=== PATIENT | female | born 1975 | race Caucasian/White ===

== ENCOUNTER 2016-07-28 11:53 | Emergency (ER) | payer OTHER ==
--- NOTE | 2016-07-28 12:37 | ER Document Report ---
ED Medical Screen (RME) - General Chief Complaint: Lower Abdominal Pain Stated Complaint: RIGHT SIDE AND LEG PAIN Time Seen by Provider: 07/28/16 12:34 Notes: Patient has been having pain in her right lower quadrant for about the past week. She has been nauseated but not vomiting. No diarrhea. Having regular bowel movements. Denies any UTI symptoms. No fevers. Seen at a local urgent care and referred here for further evaluation patient had a total hysterectomy including her ovaries being removed in February for 2 very large fibroids. Still has her appendix. TRAVEL OUTSIDE OF THE [place] IN LAST 30 DAYS: No - Related Data Allergies/Adverse Reactions: No Known Drug Allergies Allergy (Verified 07/28/16 11:56) purex soap Adverse Reaction (Intermediate, Uncoded 07/28/16 11:56) skin irritation,bumps Home Medications: Current Home Medications Estradiol [Divigel] 1 packet PO DAILY 07/28/16 [History] Past Medical History - Past Medical History Cardiac Medical History: Reports: Hx Hypertension Denies: Hx Atrial Fibrillation, Hx Congestive Heart Failure, Hx Coronary Artery Disease, Hx Heart Attack, Hx Hypercholesterolemia, Hx Peripheral Vascular Disease, Hx Pulmonary Embolism, Hx Heart Murmur Pulmonary Medical History: Reports: Hx Pneumonia Denies: Hx Asthma, Hx Bronchitis, Hx COPD, Hx Respiratory Failure, Hx Sleep Apnea, Hx Tuberculosis Neurological Medical History: Renal/ Medical History: Denies: Hx End Stage Renal Disease, Hx Kidney Stones, Hx Ovarian Cysts, Hx Peritoneal Dialysis, Hx Pelvic Inflammatory Disease Malignancy Medical History: Denies: Hx Breast Cancer, Hx Cervical Cancer, Hx Leukemia, Hx Lung Cancer, Hx Ovarian Cancer GI Medical History: Denies: Hx Crohn's Disease, Hx Gastroesophageal Reflux Disease, Hx Hiatal Hernia, Hx Irritable Bowel, Hx Liver Failure, Hx Ulcer Musculoskeltal Medical History: Reports Hx Arthritis - bursitis shoulders,knees , Denies Hx Fibromyalgia, Denies Hx Muscular Dystrophy Psychiatric Medical History: Reports: Hx Anxiety Denies: Hx Bipolar Disorder, Hx Depression, Hx Post Traumatic Stress Disorder , Hx Schizophrenia Traumatic Medical History: Denies: Hx Fractures Infectious Medical History: Denies: Hx HIV Past Surgical History: Reports: Hx Cholecystectomy. Denies: Hx Appendectomy, Hx Bowel Surgery, Hx Section, Hx Colostomy, Hx Coronary Artery Bypass Graft, Hx Gastric Bypass Surgery, Hx Herniorrhaphy, Hx Hysterectomy, Hx Mastectomy, Hx Pacemaker, Hx Tonsillectomy, Hx Tubal Ligation - Immunizations Hx Diphtheria, Pertussis, Tetanus Vaccination: No Physical Exam - Vital signs Vitals: Temp Pulse Resp BP Pulse Ox 98.4 F 77 14 151/105 H 100 07/28/16 11:56 07/28/16 11:56 07/28/16 11:56 07/28/16 11:56 07/28/16 11:56 Course - Vital Signs Vital signs: Temp Pulse Resp BP Pulse Ox 98.4 F 77 14 151/105 H 100 07/28/16 11:56 07/28/16 11:56 07/28/16 11:56 07/28/16 11:56 07/28/16 11:56
[2016-07-28 13:28] LABS: ABSOLUTE BASOPHILS # (AUTO) 0.1 10^3/uL (0.0-0.2); ABSOLUTE EOSINOPHILS # (AUTO) 0.2 10^3/uL (0.0-0.6); ABSOLUTE LYMPHOCYTES (AUTO) 1.9 10^3/uL (0.5-4.7); ABSOLUTE MONOCYTES (AUTO) 0.5 10^3/uL (0.1-1.4); ABSOLUTE NEUT (AUTO) 7.4 10^3/uL (1.7-8.2); BASOPHILS % (AUTO) 0.6 % (0-2); EOSINOPHILS % (AUTO) 1.9 % (0-6); HEMATOCRIT 43.2 % (36.0-47.0); HEMOGLOBIN 14.9 g/dL (12.0-15.5); HGB HCT DIFFERENCE 1.5; LYMPHOCYTES % (AUTO) 18.8 % (13-45); MEAN CORPUSCULAR HEMOGLOBIN 27.1 pg (27.0-33.4); MEAN CORPUSCULAR HGB CONC 34.5 g/dL (32.0-36.0); MEAN CORPUSCULAR VOLUME 79 fl (80-97); MONOCYTES % (AUTO) 4.8 % (3-13); RED BLOOD COUNT 5.49 10^6/uL (3.72-5.28); SEGMENTED NEUTROPHILS % (AUTO) 73.9 % (42-78)
[2016-07-28 13:31] LABS: APPEARANCE,URINE CLEAR; BILIRUBIN,URINE NEGATIVE (NEGATIVE); GLUCOSE, URINE NEGATIVE (NEGATIVE); KETONES,URINE NEGATIVE (NEGATIVE); LEUKOCYTE ESTERASE,URINE NEGATIVE (NEGATIVE); NITRITE,URINE NEGATIVE (NEGATIVE); PROTEIN,URINE NEGATIVE (NEGATIVE); URINE SPECIFIC GRAVITY 1.008; UROBILINOGEN,URINE NEGATIVE mg/dL (<2.0)
[2016-07-28 13:46] LABS: ALANINE AMINOTRANSFERASE 33 U/L (9-52); ALKALINE PHOSPHATASE 113 U/L (38-126); ANION GAP 12 (5-19); ASPARTATE AMINO TRANSFERASE 25 U/L (14-36); BILIRUBIN,DIRECT 0.4 mg/dL (0.0-0.4); BILIRUBIN,TOTAL 0.7 mg/dL (0.2-1.3); BLOOD UREA NITROGEN 12 mg/dL (7-20); CALCIUM 10.2 mg/dL (8.4-10.2); CARBON DIOXIDE 26 mmol/L (22-30); CHLORIDE 103 mmol/L (98-107); CREATININE RESULT 0.74 mg/dL (0.52-1.25); GLUCOSE 90 mg/dL (75-110); POTASSIUM 4.6 mmol/L (3.6-5.0); SODIUM 141.2 mmol/L (137-145); TOTAL PROTEIN 8.7 g/dL (6.3-8.2)
[2016-07-28] MEDS ORDERED: MORPHINE SULFATE 10 MG/ML INJ IV ONE (14:26)
--- NOTE | 2016-07-28 14:33 | ER Document Report ---
ED General - General Chief Complaint: Lower Abdominal Pain Stated Complaint: RIGHT SIDE AND LEG PAIN Time Seen by Provider: 07/28/16 12:34 Mode of Arrival: Ambulatory Information source: Patient Notes: 41-year-old female history of total hysterectomy presents with complaints of right lower quadrant abdominal pain of one-week duration. Patient denies any fevers or chills admits to mild nausea decreased appetite. Patient denies any diarrhea Also notes when she has abdominal pain she has pain down her right leg into her back. Patient notes symptoms worsened with movement TRAVEL OUTSIDE OF THE [place] IN LAST 30 DAYS: No - HPI Onset: Last week Onset/Duration: Persistent Quality of pain: Achy Severity: Mild Pain Level: 2 Associated symptoms: Nausea, Vomiting Exacerbated by: Denies Relieved by: Denies Similar symptoms previously: No Recently seen / treated by doctor: No - Related Data Allergies/Adverse Reactions: No Known Drug Allergies Allergy (Verified 07/28/16 11:56) purex soap Adverse Reaction (Intermediate, Uncoded 07/28/16 11:56) skin irritation,bumps Home Medications: Current Home Medications Estradiol [Divigel] 1 packet PO DAILY 07/28/16 [History] Past Medical History - Social History Smoking Status: Never Smoker Cigarette use (# per day): No Chew tobacco use (# tins/day): No Smoking Education Provided: No Frequency of alcohol use: None Drug Abuse: None Family History: Reviewed & Not Pertinent Patient has suicidal ideation: No Patient has homicidal ideation: No - Past Medical History Cardiac Medical History: Reports: Hx Hypertension Denies: Hx Atrial Fibrillation, Hx Congestive Heart Failure, Hx Coronary Artery Disease, Hx Heart Attack, Hx Hypercholesterolemia, Hx Peripheral Vascular Disease, Hx Pulmonary Embolism, Hx Heart Murmur Pulmonary Medical History: Reports: Hx Pneumonia Denies: Hx Asthma, Hx Bronchitis, Hx COPD, Hx Respiratory Failure, Hx Sleep Apnea, Hx Tuberculosis Neurological Medical History: Renal/ Medical History: Denies: Hx End Stage Renal Disease, Hx Kidney Stones, Hx Ovarian Cysts, Hx Peritoneal Dialysis, Hx Pelvic Inflammatory Disease Malignancy Medical History: Denies: Hx Breast Cancer, Hx Cervical Cancer, Hx Leukemia, Hx Lung Cancer, Hx Ovarian Cancer GI Medical History: Denies: Hx Crohn's Disease, Hx Gastroesophageal Reflux Disease, Hx Hiatal Hernia, Hx Irritable Bowel, Hx Liver Failure, Hx Ulcer Musculoskeltal Medical History: Reports Hx Arthritis - bursitis shoulders,knees , Denies Hx Fibromyalgia, Denies Hx Muscular Dystrophy Psychiatric Medical History: Reports: Hx Anxiety Denies: Hx Bipolar Disorder, Hx Depression, Hx Post Traumatic Stress Disorder , Hx Schizophrenia Traumatic Medical History: Denies: Hx Fractures Infectious Medical History: Denies: Hx HIV Past Surgical History: Reports: Hx Cholecystectomy. Denies: Hx Appendectomy, Hx Bowel Surgery, Hx Section, Hx Colostomy, Hx Coronary Artery Bypass Graft, Hx Gastric Bypass Surgery, Hx Herniorrhaphy, Hx Hysterectomy, Hx Mastectomy, Hx Pacemaker, Hx Tonsillectomy, Hx Tubal Ligation - Immunizations Hx Diphtheria, Pertussis, Tetanus Vaccination: No Review of Systems - Review of Systems Notes: PHYSICAL EXAMINATION: GENERAL: Well-appearing, well-nourished and in no acute distress. HEAD: Atraumatic, normocephalic. EYES: Pupils equal round and reactive to light, extraocular movements intact, conjunctiva are normal. ENT: Nares patent, oropharynx clear without exudates. Moist mucous membranes. NECK: Normal range of motion, supple without lymphadenopathy LUNGS: Breath sounds clear to auscultation bilaterally and equal. No wheezes rales or rhonchi. HEART: Regular rate and rhythm without murmurs ABDOMEN: Soft, tender in the right lower quadrant with mild guarding Female : deferred Musculoskeletal: Normal range of motion, no pitting or edema. No cyanosis. NEUROLOGICAL: Cranial nerves grossly intact. Normal speech, normal gait. Normal sensory, motor exams PSYCH: Normal mood, normal affect. SKIN: Warm, Dry, normal turgor, no rashes or lesions noted. Physical Exam - Vital signs Vitals: Temp Pulse Resp BP Pulse Ox 98.4 F 77 14 151/105 H 100 07/28/16 11:56 07/28/16 11:56 07/28/16 11:56 07/28/16 11:56 07/28/16 11:56 Course - Re-evaluation Re-evalutation: 07/28/16 14:36 CT abdomen with oral and IV contrast has been ordered, to evaluate for appendicitis versus colitis other intra-abdominal issues 07/28/16 15:37 CT noted no significant abnormality, I believe this may be more of a muscular skeletal issue given that she has pain down the leg. Patient will be given pain medication and anti-inflammatories for this leg pain After performing a Medical Screening Examination, I estimate there is LOW risk for ACUTE APPENDICITIS, BOWEL OBSTRUCTION, ACUTE CHOLECYSTITIS, PERFORATED DIVERTICULITIS, INCARCERATED HERNIA, PANCREATITIS, PELVIC INFLAMMATORY DISEASE, PERFORATED ULCER, ECTOPIC , or TUBO-OVARIAN ABSCESS, thus I consider the discharge disposition reasonable. Also, there is no evidence or peritonitis , sepsis, or toxicity. I have reevaluated this patient multiple times and no significant life threatening changes are noted. The patient and I have discussed the diagnosis and risks, and we agree with discharging home with close follow-up with the understanding that symptoms and presentations can change. We also discussed returning to the Emergency Department immediately if new or worsening symptoms occur. We have discussed the symptoms which are most concerning (e.g., bloody stool, fever, changing or worsening pain, vomiting) that necessitate immediate return. - Vital Signs Vital signs: Temp Pulse Resp BP Pulse Ox 98.4 F 77 14 151/105 H 100 07/28/16 11:56 07/28/16 11:56 07/28/16 11:56 07/28/16 11:56 07/28/16 11:56 - Laboratory Result Diagrams: 07/28/16 12:50 07/28/16 12:50 Laboratory results interpreted by me: 07/28/16 07/28/16 12:50 12:50 RBC 5.49 H MCV 79 L RDW 15.0 H Total Protein 8.7 H - Diagnostic Test Radiology reviewed: Image reviewed, Reports reviewed - no acute abnormality Discharge - Discharge Clinical Impression: Abdominal pain Qualifiers: Abdominal location: right lower quadrant Qualified Code(s): R10.31 - Right lower quadrant pain Leg pain Qualifiers: Laterality: right Qualified Code(s): M79.604 - Pain in right leg Condition: Stable Disposition: HOME, SELF-CARE Instructions: Abdominal Pain ([facility]) Additional Instructions: Follow up with your physician tomorrow for further care or return to the ED IMMEDIATELY if symptoms worsen or new concerns occur. If you cannot afford to follow up with your primary care physician a list of low cost clinics have been provided at the end of your discharge papers as well. Prescriptions: Hydrocodone/Acetaminophen [Lookout 5-325 mg Tablet] 1 tab PO Q6 #14 tablet Naproxen 500 mg PO BID #20 tablet
--- NOTE | 2016-07-28 15:20 | RADIOLOGY REPORT (SQ) ---
EXAM DESCRIPTION: CT ABD/PELVIS WITH IV ORAL COMPLETED DATE/TIME: 07/28/2016 3:10 pm REASON FOR STUDY: RLQ pain for 1 week COMPARISON: 01/01/2016. TECHNIQUE: CT scan of the abdomen and pelvis performed with intravenous and oral contrast using ricky lelia scanning technique with dynamic intravenous contrast injection. Images reviewed with lung, soft t issue, and bone windows. Reconstructed coronal and sagittal MPR images reviewed. Delayed images for e valuation of the urinary system also acquired. All images stored on PACS. All CT scanners at this facility use dose modulation, iterative reconstruction, and/or weight based d osing when appropriate to reduce radiation dose to as low as reasonably achievable (ALARA). [facility]: Dose Right [facility]: CareDose [facility]: Dose Right [facility]: Teradose 4D [facility]: [employer] CONTRAST TYPE AND DOSE: 74 mL Isovue 370- low osmolar. RENAL FUNCTION: BUN 12 creatinine 0.74. RADIATION DOSE: 14.61mGy. LIMITATIONS: None. FINDINGS: LOWER CHEST: No significant findings. No nodules or infiltrates. LIVER: Normal size. Diffuse fatty infiltration. No masses or dilated ducts. SPLEEN: Normal size. No focal lesions. PANCREAS: No masses. No significant calcifications. No adjacent inflammation or peripancreatic fluid collections. Pancreatic duct not dilated. GALLBLADDER: Surgically absent. ADRENAL GLANDS: No significant masses or asymmetry. RIGHT KIDNEY AND URETER: No solid masses. No significant calcification. No hydronephrosis or hydroure ter. LEFT KIDNEY AND URETER: No solid masses. No significant calcification. No hydronephrosis or hydrouret er. AORTA AND VESSELS: No aneurysm. No dissection. Renal arteries, SMA, celiac without stenosis. RETROPERITONEUM: No retroperitoneal adenopathy, hemorrhage or masses. BOWEL AND PERITONEAL CAVITY: No obstruction. No visualized masses. No free fluid. No inflammatory ch anges or thickening of bowel wall. APPENDIX: Normal. PELVIS: No significant masses. Normal bladder. No free fluid. ABDOMINAL WALL: No masses. No hernias. BONES: No significant or acute findings. OTHER: No other significant finding. IMPRESSION: NO SIGNIFICANT OR ACUTE FINDINGS IN THE ABDOMEN OR PELVIS. TECHNICAL DOCUMENTATION: JOB ID: [id number] Quality ID # [id number]: Final reports with documentation of one or more dose reduction techniques (e.g., Au tomated exposure control, adjustment of the mA and/or kV according to patient size, use of iterative reconstruction technique) 2010 [employer]- All Rights Reserved
[2016-07-28 16:06] VITALS: BP 121/82
== END 2016-07-28 16:06 | disposition home or self-care (01) ==
LOC: ER 11:53
DX: R10.31 Right lower quadrant pain (principal); M79.604 Pain in right leg; R52 Pain, unspecified; R11.0 Nausea; R63.0 Anorexia; Z79.899 Other long term (current) drug therapy
CPT/HCPCS: 99284; 96374; 36415; 83690; 85025; 80053; 81001; 74177; J2270

== ENCOUNTER → 2018-03-08 | Outpatient (CLI) | payer OTHER ==
--- NOTE | 2018-03-08 08:14 | WOMENS IMAGING REPORT ---
EXAM DESCRIPTION: U/S ABDOMEN TOTAL COMPLETED DATE/TIME: 03/08/2018 7:53 am REASON FOR STUDY: R94.5 R94.5 ABNORMAL RESULTS OF LIVER FUNCTION STUDIES COMPARISON: 10/19/2013 TECHNIQUE: Dynamic and static grayscale images acquired of the abdomen and recorded on PACS. Additio nal selected color Doppler and spectral images recorded. Note: Study does not meet criteria for complete doppler/duplex scan LIMITATIONS: None. FINDINGS: PANCREAS: No masses. Visualized pancreatic duct normal caliber. LIVER: Moderate fatty infiltration. 17.9 cm. No focal masses. LIVER VASCULATURE: Normal directional flow of the main portal vein and hepatic veins. GALLBLADDER: Surgically absent. ULTRASOUND-DETECTED TOM'S SIGN: Negative. INTRAHEPATIC DUCTS AND COMMON DUCT: CBD and intrahepatic ducts normal caliber. No filling defects. INFERIOR VENA CAVA: Normal flow. AORTA: No aneurysm. RIGHT KIDNEY: Normal size. Normal echogenicity. No solid or suspicious masses. No hydronephros is. No calcifications. LEFT KIDNEY: Normal size. Normal echogenicity. No solid or suspicious masses. No hydronephrosi s. No calcifications. SPLEEN: Normal size. No solid masses. PERITONEAL AND PLEURAL SPACES: No ascites or effusions. OTHER: No other significant finding. IMPRESSION: Fatty liver. No focal masses. TECHNICAL DOCUMENTATION: JOB ID: [id number] [employer]- All Rights Reserved Reading location - IP/workstation name: [email or web address]
== END ==
LOC: WI 07:06
PROVIDERS: ATTEND Physician Assistant
DX: R94.5 Abnormal results of liver function studies (principal)
CPT/HCPCS: 76700

== ENCOUNTER 2018-12-26 08:23 | Day surgery (SDC) | payer OTHER ==
[~2018-12-26 08:23] MED LIST: ACETAMINOPHEN 325 MG TABLET PO PRN; CEFAZOLIN SODIUM 2 GM in DEXTROSE 5%-WATER 100 ML IV PRN; FENTANYL CITRATE INJ/PF 100 MCG/2 ML AMPUL ONE; MIDAZOLAM 2 MG/2 ML INJ ONE; OXYCODONE HCL SR 10 MG TABLET PO PRN; PROPOFOL INJ 200 MG/20 ML VIAL IV ONE
[2018-12-26] MEDS ORDERED: SCOPOLAMINE HYDROBROMIDE 1.5 MG PATCH.TD72 ONE (09:05)
[2018-12-26] MEDS ORDERED: MIDAZOLAM 2 MG/2 ML INJ ONE (09:05)
[2018-12-26] MEDS ORDERED: FAMOTIDINE INJ/PF 20 MG/2 ML SDV IV ONE (09:05)
[2018-12-26] MEDS ORDERED: FAMOTIDINE INJ/PF 20 MG/2 ML SDV IV PRN (09:11)
[2018-12-26] MEDS ORDERED: OXYCODONE HCL SR 10 MG TABLET PO ONE (09:16)
[2018-12-26] MEDS ORDERED: ACETAMINOPHEN 325 MG TABLET ONE (09:16)
[2018-12-26] MEDS ORDERED: DIPHENHYDRAMINE HCL 50 MG/ML VIAL IV PRN (11:15)
[2018-12-26] MEDS ORDERED: FENTANYL CITRATE INJ/PF 100 MCG/2 ML AMPUL IV PRN ×3 (11:15)
[2018-12-26] MEDS ORDERED: ONDANSETRON HCL INJ/PF 4 MG/2 ML SDV IV PRN (11:15)
[2018-12-26] MEDS ORDERED: OXYCODONE-ACETAMINOPHEN 5-325 MG TABLET PO PRN ×2 (11:15)
[2018-12-26] MEDS ORDERED: MEPERIDINE HCL/PF INJ 25 MG/1 ML DISP.SYRIN IV PRN (11:15)
[2018-12-26] MEDS ORDERED: MORPHINE SULFATE 10 MG/ML INJ IV PRN (11:15)
[2018-12-26] MEDS ORDERED: BUPIVACAINE HCL 0.5 % INJ/PF 30 ML SDV INJ ONE (11:31)
[2018-12-26] MEDS ORDERED: KETOROLAC TROMETHAMINE 60 MG/2 ML SDV IM ONE (11:31)
[2018-12-26] MEDS ORDERED: LIDOCAINE 1% INJ (10 MG/ML) 10 ML MDV INJ ONE (11:31)
--- NOTE | 2018-12-26 12:57 | Operative Report ---
Operative Report DATE OF SURGERY: 12/26/18 PREOPERATIVE DIAGNOSIS: Right carpal tunnel syndrome POSTOPERATIVE DIAGNOSIS: Right carpal tunnel syndrome OPERATION: Right open carpal tunnel release SURGEON: SIOMARA KELLEY JR ANESTHESIA: Moderate Sedation COMPLICATIONS: none PROCEDURE: INDICATIONS: This patient is a 43-year-old female with right carpal tunnel syndrome, which was confirmed on EMG. They are scheduled for open carpal tunnel release. The planned procedures were discussed with the patient including the associated risks. The risks included but are not limited to bleeding, infection, nerve damage, failure to heal, possible need for reoperation, possible recurrence, or any associated risk of the anesthesia. They voiced understanding and agreed to proceed as planned. DESCRIPTION OF PROCEDURE: The patient was identified in the holding area and correct operative site was identified by the surgeon's teresita. Informed consent was obtained. The patient was then brought to the operating room and transferred to the operating table in supine position. Time-out was then performed at which point the surgeon, nursing staff, and anesthesia staff all confirmed the correct identification. The area of incision was injected with 6 cc of 1% lidocaine. After adequate moderate conscious sedation anesthesia was obtained, a well- padded tourniquet was placed on the patient's right upper arm. The right upper extremity was then prepped and draped in the usual sterile fashion. Planned skin incision was marked along the base of the patient's right palm, ulnar to the palmar crease. The upper extremity was then exsanguinated using Esmarch. The tourniquet was then inflated to 250 mmHg. Skin incision was then made and dissection was carried down with scalpel and Littler scissors to the level of the palmar fascia which was sharply divided. Bleeding points were identified with electrocautery using bipolar electrocautery. Retractors were then placed to allow visualization of the distal extent of the transverse carpal ligament, and this was then divided longitudinally under direct vision. Littler scissors were used to dissect distal to this area to confirm the absence of any remaining crossing obstructing fibrous band. Retractors were then replaced proximally to allow visualization of proximal extent of the transverse carpal ligament and the release was continued proximally until complete release was performed. This was confirmed by visually and palpably. Next, Littler scissors were used to dissect adjacent to the antebrachial fascia, and this was divided longitudinally under direct vision using Littler scissors to a level of approximately 3 cm proximal to the proximal extent of the skin incision. Carpal canal was then inspected. No other abnormalities were noted. Wounds were then irrigated with normal saline. Skin incision was then closed with running mattress 3-0 nylon suture. The wound was then dressed with xeroform, 4 x 4s, soft-rol, and bessy wrap. The tourniquet was then deflated. The patient was then awakened and transferred over to his hospital bed. He was transported to recovery room in stable condition. There were no intraoperative or immediate postoperative complications. All counts were reported as correct.
--- NOTE | 2018-12-26 12:58 | Discharge Summary ---
Discharge Summary (SDC) - Discharge Final Diagnosis: Right carpal tunnel syndrome Date of Surgery: 12/26/18 Discharge Date: 12/26/18 Referrals: NIMISHA LOVETT PA-C [Primary Care Provider] - Discharge Diet: As Tolerated Respiratory Treatments at Home: Deep Breathing/Coughing Discharge Activity: Activity As Tolerated
[2018-12-26 17:20] VITALS: BP 99/60
== END 2018-12-26 14:30 | disposition home or self-care (01) ==
LOC: OROUT 08:23
PROVIDERS: ATTEND Orthopaedic Surgery
DX: G56.01 Carpal tunnel syndrome, right upper limb (principal); I10 Essential (primary) hypertension; G56.21 Lesion of ulnar nerve, right upper limb; Z79.899 Other long term (current) drug therapy
CPT/HCPCS: 36415; 84132; 01810; 64721; J2250; J3490 ×2; J0690; J1885; J3010; J2704; S0028; 1810; J7060